=== PATIENT | female | born 1980 | race Caucasian/White ===

== ENCOUNTER → 2017-09-01 | Outpatient (CLI) | payer BC ==
[~2017-09-01] VITALS: Ht 185.4 cm; Wt 163.6 kg
[~2017-09-01] MED LIST: AMLODIPINE BESYL5 MG PO; ATORVASTATIN CA10 MG PO; BACTRIM,SEPT1 TABLET PO; FLUOXETINE HCL20 M1 PO; IMDUR30 MG PO; NITROSTAT0.4 MG SL; PRILOSEC20 MG PO; ROXICODONE5 MG PO; TORADOL10 MG PO; ZOFRAN8 MG PO; [UNRECOGNIZED DRUG - OTHER] PO
== END | disposition home or self-care (01) ==
LOC: AMB 12:43
DX: K83.8 Other specified diseases of biliary tract (principal); R10.11 Right upper quadrant pain; Z90.49 Acquired absence of other specified parts of digestive tract
CPT/HCPCS: 74328; 87081; 93005; C1757; J0690; J2250; J2405; J2765; J3010

== ENCOUNTER 2017-09-05 15:13 | Emergency (ER) | payer BC ==
[~2017-09-05] VITALS: Ht 185.4 cm; Wt 162.9 kg
[2017-09-05 16:47] LABS: HEMATOCRIT 43.5 % (36.0-46.0); MCH 29.8 PG (29.0-34.0); MCHC 34.5 G/DL (30.0-36.0); MCV 86.5 FL (83-99); MEAN PLAT.VOLUME 10.6 uM^3 (9.5-12.4); PLATELET COUNT 292 K/uL (156-360); RBC DIS.WIDTH-CV 13.6 % (11.8-14.6); RBC DIS.WIDTH-SD 42.9 % (39-53); RED BLOOD COUNT 5.03 M/uL (3.80-5.20)
[2017-09-05 16:50] LABS: CHLORIDE 109 mEq/L (99-109); SODIUM 137 mEq/L (136-147)
[2017-09-05 16:52] LABS: GLUCOSE 124 mg/dL (70-99)
[2017-09-05 16:53] LABS: ANION GAP 8 MEQ/L (2-14)
[2017-09-05 16:54] LABS: TOTAL BILIRUBIN 1.6 mg/dL (0.0-1.0)
[2017-09-05 16:55] LABS: ALKALINE PHOSPHATASE 149 IU/L (3-129)
[2017-09-05 16:56] LABS: GFR ESTIMATE (CALCULATED) > 59 mL/min/
[2017-09-05 16:57] LABS: UREA NITROGEN (BUN) 9 mg/dL (9-23)
[2017-09-05 17:04] LABS: QUANTITATIVE HCG < 4.0 MIU/ML
[2017-09-05 18:40] LABS: LIPASE 21 U/L (1.0-51.0)
[2017-09-05 18:49] LABS: ADD MIUA? YES; BILIRUBIN NEGATIVE; BLOOD NEGATIVE; COLOR AMBER ((YELLOW)); GLUCOSE (STRIP) NEGATIVE; KETONES NEGATIVE; LEUKOCYTES MODERATE; NITRITE NEGATIVE; PROTEIN (STRIP) NEGATIVE; SPECIFIC GRAVITY 1.018 (1.000-1.030); UROBILINOGEN 0.2 MG/DL (0.2-1.0)
[2017-09-05 18:56] LABS: BACTERIA 3+ /HPF; EPITHELIAL CELLS 1+ /HPF; HYALINE CASTS 0-5 /LPF; MUCUS 1+ /LPF; RED BLOOD CELLS 0-5 /HPF (0-5); UCUL ADDED? YES
[2017-09-05 23:32] VITALS: BP 142/85
[2017-09-07] MEDS ORDERED: PERCOCET 5/31 TABLET PO (16:11)
[2017-09-07] MEDS ORDERED: CIPRO500 MG PO (16:12)
[2017-09-07] MEDS ORDERED: FLAGYL500 MG PO (16:12)
== END 2017-09-05 23:33 | disposition home or self-care (01) ==
LOC: EME 15:13
DX: G89.18 Other acute postprocedural pain (principal); R10.11 Right upper quadrant pain; Z90.49 Acquired absence of other specified parts of digestive tract; I10 Essential (primary) hypertension; I25.2 Old myocardial infarction; K21.9 Gastro-esophageal reflux disease without esophagitis; E66.01 Morbid (severe) obesity due to excess calories; Z68.42 Body mass index [BMI] 45.0-49.9, adult; Z87.891 Personal history of nicotine dependence
CPT/HCPCS: 74177; 80053; 81003; 83690; 84702; 85027; 87086; 99281; 99285; J2405; J3010; J7030

== ENCOUNTER → 2017-09-08 | Outpatient (CLI) | payer BC ==
[~2017-09-08] VITALS: Ht 185.4 cm; Wt 163.6 kg
[~2017-09-08] MED LIST changes: +CIPRO500 MG PO; +FLAGYL500 MG PO; +PERCOCET 5/31 TABLET PO
== END | disposition home or self-care (01) ==
LOC: AMB 12:21
DX: K80.50 Calculus of bile duct without cholangitis or cholecystitis without obstruction (principal); I25.2 Old myocardial infarction; F32.9 Major depressive disorder, single episode, unspecified; E78.5 Hyperlipidemia, unspecified; I10 Essential (primary) hypertension; Z87.891 Personal history of nicotine dependence
CPT/HCPCS: 74328; 87081; C1757; C2625; J0330; J0690; J1100; J2405; J3010